=== PATIENT | female | born 1940 | race African-American/Black ===

== ENCOUNTER → 2016-07-06 | Day surgery (SDC) | payer MEDICARE, BC ==
--- NOTE | 2016-07-05 22:58 | Pre-Procedure Note/Attestation ---
Pre-Procedure Note/Attestation Complete Prior to Procedure Planned Procedure: right Procedure Narrative: Removal of cataract and placement of intraocular lens, right eye Indications for Procedure Pre-Operative Diagnosis: cataract, nuclear, right eye Attestation I attest that I discussed the nature of the procedure; its benefits; risks and complications; and alternatives (and the risks and benefits of such alternatives ), prior to the procedure, with the patient (or the patient's legal motor vehicle field representative). I attest that, if there was a reasonable possibility of needing a blood transfusion, the patient (or the patient's legal motor vehicle field representative) was given the [facility] standardized written summary, pursuant to the [employer] Blood Safety Act ([place] Health and Safety Code # 1645, as amended). I attest that I re-evaluated the patient just prior to the surgery and that there has been no change in the patient's H&P, except as documented below: Talat De Anda MD Jul 05, 2016 22:58
[2016-07-06] VITALS (8 sets, daily range): BP systolic 128–147; BP diastolic 84–90
[~2016-07-06] VITALS: Ht 160 cm; Wt 45.4 kg
[~2016-07-06] MED LIST: Acetylcholine Injection (OR) ONE; Akten 3.5% 1ml Btl RIGHT EYE SCH; BREO ELLIPTA 11 EACH IH; BSS 15ml BTL ONE; BSS 500ml btl ONE; Bupivacaine 0.75% 30ml vial INJ ONE; Carbachol 0.01% Op Soln 1.5ml vial ONE; Dexamethasone 4mg/ml vial ONE; EPINEPHrine 1mg/1ml Amp ONE; Fluorescein Strips ONE; Healon Duet Dual Pack ONE; LR 1000ml ONE; Lidocaine 1% MPF 10mg/ml 5ml ONE; Lidocaine 4% Amp ONE; Maxitrol Opth Oint 3.5gm ONE; Midazolam 2mg/2ml Inj ONE; NS Irrig 1000ml ONE; Povidone-Iodine 5% opth solution ONE; Pred Forte 1% Opth Susp 1ml ONE; Pred Forte 1% Opth Susp 1ml RIGHT EYE ONE; Sodium Hyaluronate 10 mg/ml 0.85ml ONE; Sterile Water Irrig 1000ml IRRIG ONE; Timolol 0.5% Op Soln 2.5ml ONE; fentaNYL 100 mcg/2 mL IV ONE
[2016-07-06] MEDS: Phenylephrine 10% Opth Soln 5ml RIGHT EYE SCH ×3 (10:30→10:56)
[2016-07-06] MEDS: Cyclopentolate 1% Opth Sol RIGHT EYE SCH ×3 (10:30→10:57)
[2016-07-06] MEDS: Flurbiprofen 0.03% Opth Sol 2.5ml RIGHT EYE SCH ×3 (10:30→10:56)
[2016-07-06] MEDS: Gatifloxacin Opth Solution 0.5% RIGHT EYE SCH ×3 (10:30→10:57)
[2016-07-06] MEDS: Tetracaine 0.5% Opth Soln RIGHT EYE SCH ×3 (10:31→10:56)
--- NOTE | 2016-07-06 12:28 | Anethesia Preoperative Eval ---
Anesthesia Pre-op PMH/ROS General Date of Evaluation: Jul 06, 2016 Time of Evaluation: 12:27 Anesthesiologist: Mickie ASA Score: ASA 2 Mallampati Score Class I : Soft palate, uvula, fauces, pillars visible Class II: Soft palate, uvula, fauces visible Class III: Soft palate, base of uvula visible Class IV: Only hard plate visible Mallampati Classification: Class II Surgeon: manuel Diagnosis: cataract right eye Surgical Procedure: cataract extraction right eye with IOL placement Anesthesia History: none Family History: no anesthesia problems Allergies: Coded Allergies: No Known Allergies (Verified Allergy, Mild, 08/02/06) Medications: see eMAR Past Medical History Cardiovascular: Denies: CAD, HTN, [place], arrhythmia, other, valve dz Pulmonary: Reports: asthma Gastrointestinal/Genitourinary: Denies: CRI, ESRD, GERD, other Neurologic/Psychiatric: Denies: CVA, TIA, dementia, depression/anxiety, other Endocrine: Denies: DM, hypothyroidism, other, steroids HEENT: Reports: cataract (R) Hematology/Immune: Denies: DVT, anemia, bleeding disorder, other Musculoskeletal/Integumentary: Denies: DDD, DJD, OA, RA, edema, other PMH Narrative: Asthma, PSxH Narrative: cataract left eye Anesthesia Pre-op Phys. Exam Physician Exam Last Vital Signs Date Time Temp Pulse Resp B/P Pulse Ox O2 Delivery O2 Flow Rate FiO2 07/06/16 10:34 96.9 73 18 134/84 98 Room Air Constitutional: NAD Neurologic: CN 2-12 intact Cardiovascular: RRR Respiratory: CTA Gastrointestinal: S/NT/ND Airway Exam Mallampati Score: Class II MO: full ROM: full Teeth: intact Dentures: no lower, no upper FRAN CURIEL D.O. Jul 06, 2016 12:28
--- NOTE | 2016-07-06 13:46 | Immediate Post-Op Evaluation ---
Immediate Post-Op Evalulation Immediate Post-Op Evalulation Procedure: cataract extraction right eye with IOL placement Date of Evaluation: Jul 06, 2016 Time of Evaluation: 13:45 IV Fluids: 800ml Blood Products: none Estimated Blood Loss: minimal Urinary Output: due to void Blood Pressure Systolic: 138 Blood Pressure Diastolic: 84 Pulse Rate: 75 Respiratory Rate: 16 O2 Sat by Pulse Oximetry: 97 Temperature (Fahrenheit): 98 Pain Score (1-10): 0 Nausea: No Vomiting: No Complications none Patient Status: awake, reacts Hydration Status: adequate Drug: n/a FRAN CURIEL D.O. Jul 06, 2016 13:46
--- NOTE | 2016-07-06 13:51 | 48 Hour Post Anesthesia Eval ---
Post Anesthesia Evaluation Procedure: cataract extraction right eye with IOL placement Date of Evaluation: Jul 06, 2016 Time of Evaluation: 13:50 Blood Pressure Systolic: 130 0: 86 Pulse Rate: 78 Respiratory Rate: 16 Temperature (Fahrenheit): 98 O2 Sat by Pulse Oximetry: 98 Airway: patent Nausea: No Vomiting: No Pain Intensity: 0 Hydration Status: adequate Cardiopulmonary Status: stable Mental Status/LOC: patient returned to baseline Follow-up Care/Observations: as per surgeon Post-Anesthesia Complications: none Follow-up care needed: N/A FRAN CURIEL D.O. Jul 06, 2016 13:51
--- NOTE | 2016-07-06 13:58 | Brief Operative Note ---
Immediate Post Operative Note Operative Note Pre-op Diagnosis: cataract, nuclear, right eye Procedure: phaco pc iol, OD Post-op Diagnosis: same as pre-op Surgeon: Cate De Anda MD Anesthesiologist: Dr Corado Anesthesia: local, MAC Specimen: none Complications: none Condition: stable Estimated Blood Loss: minimal Drains: none Implant(s) used?: Yes - kareem [id number] 18.5 Talat De Anda MD Jul 06, 2016 13:58
--- NOTE | 2016-07-06 13:59 | Discharge Instructions ---
Discharge Instructions Discharge Instructions Follow Up Orders continue pre op eye drops wear shield at all times followup tomorrow in Dr De Anda's office For Congestive Heart Failure Reminder Report to your physician any weight gain of 5 pounds or more in one week. Talat De Anda MD Jul 06, 2016 13:59
--- NOTE | 2016-07-06 23:39 | Operative Note - Dictated ---
DATE OF OPERATION: 07/06/2016 SURGEON: Talat De Anda M.D. [employer] DRAWER SURGEON: None. ANESTHESIOLOGIST: Dr. Corado. ANESTHESIA: Local/standby/monitored anesthesia care. PREOPERATIVE DIAGNOSIS: Cataract, nuclear, cortical, right eye. POSTOPERATIVE DIAGNOSIS: Cataract, nuclear, cortical, right eye. PROCEDURE: 1. Phacoemulsification of cataract, right eye. 2. Placement of posterior chamber intraocular lens, right eye (model [id number], power 18.5). SPECIMENS: None. COMPLICATIONS: None. INDICATIONS FOR SURGERY: The patient has had painless progressive decrease in visual acuity in the right eye secondary to cataract. The patient understands the risks of surgery including infection, bleeding, need for further surgery, loss of vision, no improvement in vision, loss of the eye, loss of life, glaucoma, retinal detachment, and understands these risks and elects to proceed with surgery. FINDINGS: The patient had a +2 to 3 nuclear sclerotic cataract as well as a +1 cortical cataract. Operative Note: After informed consent was obtained, the patient was brought into the operating room, placed in supine position. Cardiac and respiratory monitors were attached. A time-out was performed and all criteria were met and everyone in the room agreed. The right eye was then draped and prepped in sterile manner for ocular surgery. A lid speculum was placed in the eye. A 1% lidocaine preservative-free was injected at the approximate 9:30 limbus. A conjunctiva peritomy from approximately 9 o'clock to 10 o'clock was made and dissected posteriorly. Hemostasis was maintained with bipolar cautery. A 2.6 mm limbal incision was made centered approximately 9:30 and dissected anteriorly. A paracentesis was made at approximately 12 o'clock and Shugarcaine was injected into the anterior chamber followed by Healon. The anterior chamber was then entered using a 2.6 mm keratome through the limbal incision. An anterior capsulorrhexis was then performed. Hydrodissection and hydrodelineation of the lens was then performed. The lens was then phacoemulsified using divide and conquer four-quadrant technique. Residual cortical material was then aspirated. Healon was injected into the anterior chamber and capsular bag. The lens was taken from its package, placed into the cartridge and the tip of the cartridge was placed through the limbal incision. The lens was injected into the capsular bag and centered nicely with a Sinskey hook. Healon was aspirated from the anterior chamber and capsular bag. One 10-0 nylon interrupted suture was placed through the limbal incision. The knot was rotated and buried. Care was taken during the entire procedure not to touch the endothelium. All wounds are also hydrated and closed. Wounds were checked and found to be Dora negative. The lid speculum and drapes were removed from the eye. Drops of Timoptic 0.5% were applied to the eye followed by drops of gatifloxacin, Pred Forte, and then Maxitrol ointment and then a shield. The patient tolerated the procedure well and left the operating room awake and alert in stable condition. Talat De Anda M.D. DR: Mehreen JOB#: [id number] CC:
== END | disposition home or self-care (01) ==
LOC: SUR 10:05
DX: H25.11 Age-related nuclear cataract, right eye (principal); H25.011 Cortical age-related cataract, right eye; J44.9 Chronic obstructive pulmonary disease, unspecified
CPT/HCPCS: 66984; J0171; J1100; J2250; J3010; J7120; V2632; 94003; 94150